=== PATIENT | female | born 1990 ===

== ENCOUNTER 2016-10-24 19:07 | Emergency (ER) | payer MEDICAID ==
[2016-10-24] MEDS ORDERED: Sodium Chloride 0.9% 1,000 ML IV ONE (19:27)
--- NOTE | 2016-10-24 19:27 | C.PDOC ---
History Of Present Illness Patient presents to the ER with a complaint of abdominal pain and vaginal bleeding since 10/09. Patient reports she took a depo shot. Denies fever, chills , nausea, vomiting, or dizziness. Time Seen by Provider: 10/24/16 19:26 Chief Complaint (Nursing): Abdominal Pain History Per: Patient History/Exam Limitations: no limitations Onset/Duration Of Symptoms: Days Current Symptoms Are (Timing): Still Present Severity: Moderate Pain Scale Rating Of: 4 Quality Of Discomfort: Unable To Describe Associated Symptoms: Other ((+)Vaginal bleeding (-) Dizziness). denies: Fever, Chills, Nausea, Vomiting Alleviating Factors: None Recent travel outside of the [place]: No Abnormal Vaginal Bleeding: Yes Past Medical History Reviewed: Historical Data, Nursing Documentation, Vital Signs Vital Signs: Last Vital Signs Temp 98.1 F 10/24/16 19:50 Pulse 79 10/24/16 19:50 Resp 18 10/24/16 19:50 BP 109/67 10/24/16 19:50 Pulse Ox 99 10/24/16 19:50 - Medical History PMH: No Chronic Diseases Surgical History: No Surg Hx Family History: States: Unknown Family Hx - Social History Hx Alcohol Use: Yes Hx Substance Use: No - Immunization History Hx Tetanus Toxoid Vaccination: No Hx Influenza Vaccination: No Hx Pneumococcal Vaccination: No Review Of Systems Constitutional: Negative for: Fever, Chills Cardiovascular: Negative for: Chest Pain Gastrointestinal: Positive for: Abdominal Pain. Negative for: Nausea, Vomiting Genitourinary: Positive for: Vaginal Bleeding Skin: Negative for: Rash Neurological: Negative for: Dizziness Psych: Negative for: Anxiety Physical Exam - Physical Exam Appears: Non-toxic, No Acute Distress Skin: Warm, Dry Head: Normacephalic Eye(s): bilateral: Normal Inspection Oral Mucosa: Moist Chest: Symmetrical, No Tenderness Cardiovascular: Rhythm Regular, No Murmur Respiratory: No Rales, No Rhonchi, No Wheezing Gastrointestinal/Abdominal: Soft, Tenderness (Mild diffuse) Neurological/Psych: Oriented x3 Gait: Steady ED Course And Treatment - Laboratory Results Result Diagrams: 10/24/16 19:38 10/24/16 19:38 O2 Sat by Pulse Oximetry: 100 (Room air) Pulse Ox Interpretation: Normal Progress Note: Blood work and urinalysis ordered. IV fluids administered. Reevaluation Time: 20:34 Reassessment Condition: Improved Disposition Counseled Patient/Family Regarding: Studies Performed, Diagnosis, Need For Followup - Disposition Referrals: Deandre Carbone MD [Non-Staff] - Disposition: HOME/ ROUTINE Disposition Time: 19:27 Condition: FAIR Instructions: Dysfunctional Uterine Bleeding (ED) - Clinical Impression Clinical Impression: DUB (dysfunctional uterine bleeding), Breakthrough bleeding - Scribe Statement The provider has reviewed the documentation as recorded by the Scribbillie Duval All medical record entries made by the Pollyibbillie were at my direction and personally dictated by me. I have reviewed the chart and agree that the record accurately reflects my personal performance of the history, physical exam, medical decision making, and the department course for this patient. I have also personally directed, reviewed, and agree with the discharge instructions and disposition.
[2016-10-24] MEDS ORDERED: Sodium Chloride 0.9% 1,000 ML ONE (19:38)
[2016-10-24 19:52] LABS: SQUAMOUS EPITHIAL 3 /hpf (0-5); URINE BILIRUBIN NEGATIVE (NEGATIVE); URINE BLOOD NEGATIVE (NEGATIVE); URINE CLARITY Clear (Clear); URINE COLOR Yellow (YELLOW); URINE GLUCOSE (UA) NORMAL (Normal); URINE LEUKOCYTE ESTERASE NEG Leu/uL (Negative); URINE NITRATE NEGATIVE (NEGATIVE); URINE PROTEIN NEGATIVE (NEGATIVE); URINE UROBILINOGEN NORMAL mg/dL (0.2-1.0)
[2016-10-24 19:54] LABS: ALBUMIN 4.1 g/dL (3.5-5.0)
[2016-10-24 19:55] LABS: HCG,QUALITATIVE URINE NEGATIVE (NEGATIVE)
[2016-10-24 19:56] LABS: BASO # 0.1 K/uL (0.0-0.2); BASO % 0.7 % (0.0-2.0); EOS # 0.2 K/uL (0.0-0.7); EOS % 1.4 % (0.0-4.0); HEMOGLOBIN 12.5 g/dL (11.0-16.0); LYMPH # 3.3 K/uL (1.0-4.3); LYMPH % 28.8 % (20.0-40.0); MEAN CELL VOLUME 86.4 fL (81.0-99.0); MEAN CORPUSCULAR HEMOGLOBIN 29.8 pg (27.0-31.0); MEAN CORPUSCULAR HGB CONC 34.5 g/dL (33.0-37.0); MEAN PLATELET VOLUME 8.2 fL (7.2-11.7); MONO # 0.7 K/uL (0.0-0.8); NEUT # 7.2 K/uL (1.8-7.0); NEUT % 63.1 % (50.0-75.0); RBC 4.21 Mil/uL (3.80-5.20); RED CELL DISTRIBUTION WIDTH 12.8 % (11.5-14.5); WHITE BLOOD COUNT 11.4 K/uL (4.8-10.8)
[2016-10-24 19:57] LABS: ALB/GLOB RATIO 1.2 (1.0-2.1); ALT/SGPT 23 U/L (9-52); AST/SGOT 30 U/L (14-36); BLOOD UREA NITROGEN 13 mg/dL (7-17); GFR AFRICAN-AMERICAN > 60; GFR NON-AFRICAN AMERICAN > 60
[2016-10-24 19:58] LABS: LIPASE 156 U/L (23-300)
[2016-10-24 20:10] LABS: INR 1.1; PROTHROMBIN TIME 12.7 SECONDS (9.7-12.2)
[2016-10-24 20:46] VITALS: BP 108/67; PULSE 83; RESP 20; TEMP 98.2; O2SAT 96
== END 2016-10-24 20:46 | disposition home or self-care (01) ==
LOC: C.ER 19:07
DX: N93.8 Other specified abnormal uterine and vaginal bleeding (principal)
CPT/HCPCS: 80053; 81001; 83690; 84703; 85025; 85610; 85730; 99285; J7040

== ENCOUNTER 2017-05-06 16:55 | Emergency (ER) | payer SELFPAY ==
[2017-05-06 17:16] VITALS: RESP 20; TEMP 97.9
--- NOTE | 2017-05-06 17:36 | C.PDOC ---
History Of Present Illness L LOWER BACK PAIN SINCE THIS MORNING. ONSET AFTER BENDING DOWN. LOCALIZED WORSE W MOVEMENT. 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 HO CHRONIC LBP BUT CURRENT PAIN DIFFERENT LOCATION THAN USUAL. NO OTHER ASSOC SX OR INJURY EXA, MILD DIST BACK +SPASM L LOWER BACK W GEN TEND. LIMITED FULL EXTENSION DUE TO PAIN. NO SPINAL TEND NEURO INTACT Time Seen by Provider: 05/06/17 17:24 Chief Complaint (Nursing): Back Pain History Per: Patient History/Exam Limitations: no limitations Onset/Duration Of Symptoms: Sudden Onset (since morning) Past Medical History Reviewed: Historical Data, Nursing Documentation, Vital Signs Vital Signs: Last Vital Signs Temp 97.9 F 05/06/17 17:14 Pulse 77 05/06/17 17:14 Resp 20 05/06/17 17:14 BP 102/66 05/06/17 17:14 Pulse Ox 98 05/06/17 17:40 Family History: States: No Known Family Hx - Social History Hx Alcohol Use: Yes Hx Substance Use: No - Immunization History Hx Tetanus Toxoid Vaccination: No Hx Influenza Vaccination: No Hx Pneumococcal Vaccination: No Review Of Systems Except As Marked, All Systems Reviewed And Found Negative. Gastrointestinal: Negative for: Nausea, Vomiting, Abdominal Pain Genitourinary: Negative for: Dysuria Musculoskeletal: Positive for: Back Pain (left lower back pain). Negative for: Leg Pain Neurological: Negative for: Weakness, Numbness Physical Exam - Physical Exam Appears: Non-toxic, In Acute Distress (mild) Skin: Warm, Dry, No Rash Oral Mucosa: Moist Neck: Normal, Normal ROM, Supple Respiratory: Normal Breath Sounds Back: Decreased ROM (limited full extension due to pain), Muscle Spasm (left lower back with general tenderness), No Paraspinal Tenderness Extremity: Normal ROM, No Swelling Neurological/Psych: Oriented x3, Normal Speech, Normal Motor ED Course And Treatment O2 Sat by Pulse Oximetry: 98 (RA) Pulse Ox Interpretation: Normal Medical Decision Making Medical Decision Making: PLAN: * Zofran Po * Percocet PO * Toradol IM Disposition Counseled Patient/Family Regarding: Diagnosis, Need For Followup, Rx Given - Disposition Referrals: YOUR,PMD [Other] Disposition: HOME/ ROUTINE Disposition Time: 17:39 Prescriptions: Ibuprofen [Motrin] 600 mg PO Q6 #30 tab Ondansetron [Zofran Odt] 4 mg PO TID PRN #9 odt PRN Reason: Nausea/Vomiting oxyCODONE/Acetaminophen [Percocet 5/325 mg Tab] 1 ea PO QID #8 tab Instructions: Acute Low Back Pain (ED) Forms: [facility] (Peruvian), Work Excuse - Clinical Impression Clinical Impression: Low back strain - Scribe Statement The provider has reviewed the documentation as recorded by the Pollyibe Bibiana Avalos Provider Attestation: All medical record entries made by the Pollyibbillie were at my direction and personally dictated by me. I have reviewed the chart and agree that the record accurately reflects my personal performance of the history, physical exam, medical decision making, and the department course for this patient. I have also personally directed, reviewed, and agree with the discharge instructions and disposition.
[2017-05-06] MEDS ORDERED: Oxycodone/Acetaminophen 5/325 mg Tab PO STA (17:40)
[2017-05-06] MEDS ORDERED: Oxycodone/Acetaminophen 5/325 mg Tab ONE (17:55)
[2017-05-06 18:12] VITALS: BP 108/68; PULSE 72; O2SAT 100
== END 2017-05-06 18:13 | disposition home or self-care (01) ==
LOC: C.ER 16:55
DX: S39.012A Strain of muscle, fascia and tendon of lower back, initial encounter (principal); X50.9XXA Other and unspecified overexertion or strenuous movements or postures, initial encounter
CPT/HCPCS: 96372; 99283; J1885

== ENCOUNTER 2017-07-26 19:14 | Emergency (ER) | payer SELFPAY ==
--- NOTE | 2017-07-26 19:40 | C.PDOC ---
History Of Present Illness 27 y/o female presents to ED with complaints of headache associated with nausea , vomiting, and photophobia that began 3 days ago. Patient has PMHx of migraines. Chief Complaint (Nursing): Headache History Per: Patient History/Exam Limitations: no limitations Onset/Duration Of Symptoms: Hrs Current Symptoms Are (Timing): Still Present Preceeding Symptoms: None Associated Symptoms: Photophobia Recent travel outside of the [place]: No Past Medical History Reviewed: Historical Data, Nursing Documentation, Vital Signs Vital Signs: Last Vital Signs Temp 97.8 F 07/26/17 19:19 Pulse 96 H 07/26/17 19:19 Resp 18 07/26/17 19:19 BP 103/70 07/26/17 19:19 Pulse Ox 97 07/26/17 20:30 - Medical History PMH: Migraine Surgical History: No Surg Hx Family History: States: Unknown Family Hx - Social History Hx Alcohol Use: Yes Hx Substance Use: No - Immunization History Hx Tetanus Toxoid Vaccination: No Hx Influenza Vaccination: No Hx Pneumococcal Vaccination: No Review Of Systems Constitutional: Negative for: Fever, Chills Eyes: Positive for: Other (photophobia ) Gastrointestinal: Positive for: Nausea, Vomiting. Negative for: Abdominal Pain , Diarrhea Neurological: Positive for: Headache. Negative for: Weakness, Numbness, Change in Speech, Confusion, Dizziness Physical Exam - Physical Exam Appears: Non-toxic, No Acute Distress Skin: Normal Color, Warm, Dry Head: Atraumatic, Normacephalic Eye(s): bilateral: Normal Inspection Oral Mucosa: Moist Neck: Supple, No Other (rigidity, edema ) Chest: Symmetrical, No Tenderness Cardiovascular: Rhythm Regular Respiratory: Normal Breath Sounds, No Decreased Breath Sounds, No Rales, No Rhonchi, No Wheezing Extremity: Normal ROM, No Pedal Edema, No Deformity Neurological/Psych: Oriented x3, Normal Speech, Normal Cognition ED Course And Treatment - Laboratory Results Result Diagrams: 07/26/17 19:59 07/26/17 20:22 O2 Sat by Pulse Oximetry: 97 (RA) Pulse Ox Interpretation: Normal - CT Scan/US CT Head Other Rad Studies (CT/US): Read By Radiologist, Radiology Report Reviewed CT/US Interpretation: EXAM: CT Head Without Intravenous Contrast. EXAM DATE/ TIME: Exam ordered 07/26/2017 7:37 PM. CLINICAL HISTORY: 27 years old, female; Condition or disease; Headache; Headache not specified. TECHNIQUE: Axial computed tomography images of the head/brain without intravenous contrast. All CT scans at. this facility use one or more dose reduction techniques, viz.: automated exposure control; ma/kV. adjustment per patient size (including targeted exams where dose is matched to indication; i.e. head);. or iterative reconstruction technique. COMPARISON: No relevant prior studies available. FINDINGS: Brain: Unremarkable. No hemorrhage. No significant white matter disease. No edema. Ventricles: Unremarkable. No ventriculomegaly. Bones/joints : Unremarkable. No acute fracture. Soft tissues: Unremarkable. Sinuses: Mucosal thickening is seen in the maxillary sinuses bilaterally extending into the ethmoid. air cells and the frontal sinuses. An air-fluid level seen in the frontal sinuses. Mastoid air cells: Unremarkable as visualized. No mastoid effusion. IMPRESSION: [facility]. ALICE App Radiology [facility]. Final Radiology Report [id number]. Name: LAVON PAZ Age: 27Years F Date: 09/2017. SSN: [id number] : 1990. Study: CT HEAD WO Requesting Physician: Bryant Mata. Images: 130. Add l Studies: Provided Clinical History: Headache. CONFIDENTIALITY STATEMENT. This transmission is confidential and is intended to be a privileged communication. It is intended only for the use of the addressee. Access to this. message by anyone else is unauthorized. If you are not the intended recipient, any disclosure, copying, distribution or any action taken, or omitted to. be taken in reliance on it is prohibited and may be unlawful. If you received this communication in error, please notify us by telephone, so that return. of this document to us can be arranged. Page 2 of 2. 1. Acute on chronic sinusitis within the frontal sinuses. Chronic sinusitis in the maxillary and ethmoid. air cells. Medical Decision Making Medical Decision Making: Administered Toradol and Zofran. Ordered CT Head, blood work and urinalysis. Disposition Counseled Patient/Family Regarding: Diagnosis - Disposition Referrals: Karen Moore APN [Primary Care Provider] - [facility] [Outside] Disposition: HOME/ ROUTINE Disposition Time: 20:44 Condition: STABLE Prescriptions: Amoxicillin/Clavulanate [Augmentin 875 MG-125 MG] 1 tab PO BID #14 tab Desloratadine/Pseudoephedrine [Clarinex-D 12 Hour Tablet] 1 each PO Q12 #14 tbmp.12hr Naproxen 375 mg PO TIDPC #20 tablet Instructions: Headache, Adult (DC), Sinus Headache (DC) Forms: [employer] (Welsh) - POA Present On Arrival: None - Clinical Impression Clinical Impression: Headache, Sinusitis - Scribe Statement The provider has reviewed the documentation as recorded by the Pollyibbillie Montano All medical record entries made by the Pollyibbillie were at my direction and personally dictated by me. I have reviewed the chart and agree that the record accurately reflects my personal performance of the history, physical exam, medical decision making, and the department course for this patient. I have also personally directed, reviewed, and agree with the discharge instructions and disposition.
[2017-07-26 20:02] LABS: BASO # 0.1 K/uL (0.0-0.2); BASO % 0.9 % (0.0-2.0); EOS # 0.1 K/uL (0.0-0.7); EOS % 0.9 % (0.0-4.0); HEMOGLOBIN 12.8 g/dL (11.0-16.0); LYMPH # 3.1 K/uL (1.0-4.3); LYMPH % 26.9 % (20.0-40.0); MEAN CELL VOLUME 86.1 fL (81.0-99.0); MEAN CORPUSCULAR HEMOGLOBIN 29.5 pg (27.0-31.0); MEAN CORPUSCULAR HGB CONC 34.3 g/dL (33.0-37.0); MEAN PLATELET VOLUME 8.2 fL (7.2-11.7); MONO # 0.7 K/uL (0.0-0.8); NEUT # 7.5 K/uL (1.8-7.0); NEUT % 65.3 % (50.0-75.0); NRBC % 0.2 % (0.0-2.0); RBC 4.33 Mil/uL (3.80-5.20); RED CELL DISTRIBUTION WIDTH 13.3 % (11.5-14.5); WHITE BLOOD COUNT 11.4 K/uL (4.8-10.8)
--- NOTE | 2017-07-26 20:27 | CT ---
EXAM: CT Head Without Intravenous Contrast EXAM DATE/TIME: Exam ordered 07/26/2017 7:37 PM CLINICAL HISTORY: 27 years old, female; Condition or disease; Headache; Headache not specified TECHNIQUE: Axial computed tomography images of the head/brain without intravenous contrast. All CT scans at this facility use one or more dose reduction techniques, viz.: automated exposure control; ma/kV adjustment per patient size (including targeted exams where dose is matched to indication; i.e. head); or iterative reconstruction technique. COMPARISON: No relevant prior studies available. FINDINGS: Brain: Unremarkable. No hemorrhage. No significant white matter disease. No edema. Ventricles: Unremarkable. No ventriculomegaly. Bones/joints: Unremarkable. No acute fracture. Soft tissues: Unremarkable. Sinuses: Mucosal thickening is seen in the maxillary sinuses bilaterally extending into the ethmoid air cells and the frontal sinuses. An air-fluid level seen in the frontal sinuses. Mastoid air cells: Unremarkable as visualized. No mastoid effusion. IMPRESSION: 1. Acute on chronic sinusitis within the frontal sinuses. Chronic sinusitis in the maxillary and ethmoid air cells.
[2017-07-26 20:36] LABS: ALB/GLOB RATIO 1.1 (1.0-2.1); ALBUMIN 3.6 g/dL (3.5-5.0); ALT/SGPT 19 U/L (9-52); AST/SGOT 15 U/L (14-36); BLOOD UREA NITROGEN 10 mg/dL (7-17); CALCIUM 8.1 mg/dl (8.6-10.4); GFR AFRICAN-AMERICAN > 60; GFR NON-AFRICAN AMERICAN > 60
[2017-07-26] MEDS ORDERED: Amoxicillin-Clav 875-125 mg Tab PO STA (20:49)
[2017-07-26] MEDS ORDERED: Amoxicillin-Clav 875-125 mg Tab PO ONE (20:58)
[2017-07-26 21:04] VITALS: BP 106/61; PULSE 70; RESP 20; TEMP 97.9; O2SAT 95
== END 2017-07-26 21:05 | disposition home or self-care (01) ==
LOC: SUPCPDRO 19:14 → C.ER 19:14
DX: R51 Headache (principal); J32.9 Chronic sinusitis, unspecified
CPT/HCPCS: 70450; 80053; 84703; 85025; 96374; 96375; 99285; J1885; J2405